=== PATIENT | female | born 1965 | race Caucasian/White ===

== ENCOUNTER 2017-01-01 16:40 | Emergency (ER) | payer OTHER ==
[2017-01-01 16:51] VITALS: BP 118/69
--- NOTE | 2017-01-01 17:05 | ER Document Report ---
ED Medical Screen (RME) - General Chief Complaint: Fall Injury Stated Complaint: FALL/RIGHT KNEE PAIN TRAVEL OUTSIDE OF THE [place] IN LAST 30 DAYS: No - HPI Patient complains to provider of: fall Notes: 01/01/17 17:04 Fall from scaffolding right knee pain - Related Data Allergies/Adverse Reactions: No Known Allergies Allergy (Verified 01/01/17 16:51) Past Medical History - Past Medical History Cardiac Medical History: Reports: Hx Heart Attack - cardiac cath negative 07/07 Neurological Medical History: Denies: Hx Seizures Renal/ Medical History: Denies: Hx Peritoneal Dialysis GI Medical History: Reports: Hx Gastroesophageal Reflux Disease Psychiatric Medical History: Reports: Hx Attention Deficit Hyperactivity Disorder, Hx Depression Past Surgical History: Reports: Hx Abdominal Surgery - GASTRIC BYPASS, BOWEL OBSTRUCTION, Hx Breast Surgery - REDUCTION, Hx Cholecystectomy, Hx Gynecologic Surgery - CERVICAL ABLATION, Hx Hysterectomy, Hx Kidney (Renal Surgery), Hx Tonsillectomy - Immunizations Hx Diphtheria, Pertussis, Tetanus Vaccination: No Review of Systems - Review of Systems Constitutional: Other - Right knee pain Physical Exam - Vital signs Vitals: Temp Pulse Resp BP Pulse Ox 98.6 F 72 18 118/69 99 01/01/17 16:50 01/01/17 16:50 01/01/17 16:50 01/01/17 16:50 01/01/17 16:50 - Notes Notes: Right knee pain Course - Vital Signs Vital signs: Temp Pulse Resp BP Pulse Ox 98.6 F 72 18 118/69 99 01/01/17 16:50 01/01/17 16:50 01/01/17 16:50 01/01/17 16:50 01/01/17 16:50
--- NOTE | 2017-01-01 18:17 | ER Document Report ---
ED Fall - General Chief Complaint: Fall Injury Stated Complaint: FALL/RIGHT KNEE PAIN Notes: 51 yo female c/o right knee and lower leg pain. pt fell approx 12 feet from scaffolding. + able to bear weight, but with pain. TRAVEL OUTSIDE OF THE [place] IN LAST 30 DAYS: No - HPI Occurred: Just prior to arrival Context: Fell from height Associated symptoms: None Location of injury/pain: Knee - right Adult Front & Back: 1 - pain Quality of pain: Achy Severity: Severe - Related data Allergies/Adverse Reactions: No Known Allergies Allergy (Verified 01/01/17 16:51) Past Medical History - General Information source: Patient - Social History Smoking Status: Current Every Day Smoker Chew tobacco use (# tins/day): Yes Frequency of alcohol use: None Drug Abuse: None Lives with: Family Family History: Reviewed & Not Pertinent Patient has suicidal ideation: No Patient has homicidal ideation: No - Past Medical History Cardiac Medical History: Reports: Hx Heart Attack - cardiac cath negative 07/07 Neurological Medical History: Denies: Hx Seizures Renal/ Medical History: Denies: Hx Peritoneal Dialysis GI Medical History: Reports: Hx Gastroesophageal Reflux Disease Psychiatric Medical History: Reports: Hx Attention Deficit Hyperactivity Disorder, Hx Depression Past Surgical History: Reports: Hx Abdominal Surgery - GASTRIC BYPASS, BOWEL OBSTRUCTION, Hx Breast Surgery - REDUCTION, Hx Cholecystectomy, Hx Gynecologic Surgery - CERVICAL ABLATION, Hx Hysterectomy, Hx Kidney (Renal Surgery), Hx Tonsillectomy - Immunizations Hx Diphtheria, Pertussis, Tetanus Vaccination: No Hx Pneumococcal Vaccination: 09/25/05 Review of Systems - Review of Systems Constitutional: No symptoms reported EENT: No symptoms reported Cardiovascular: No symptoms reported Respiratory: No symptoms reported Gastrointestinal: No symptoms reported Genitourinary: No symptoms reported Female Genitourinary: No symptoms reported Musculoskeletal: See HPI Skin: No symptoms reported Hematologic/Lymphatic: No symptoms reported Neurological/Psychological: No symptoms reported Physical Exam - Vital signs Vitals: Temp Pulse Resp BP Pulse Ox 98.6 F 72 18 118/69 99 01/01/17 16:45 01/01/17 16:45 01/01/17 16:45 01/01/17 16:45 01/01/17 16:45 Interpretation: Normal - General General appearance: Appears well, Alert - HEENT Head: Normocephalic, Atraumatic Eyes: Normal Pupils: PERRL - Respiratory Respiratory status: No respiratory distress Chest status: Nontender Breath sounds: Normal Chest palpation: Normal - Cardiovascular Rhythm: Regular Heart sounds: Normal auscultation Murmur: No - Abdominal Inspection: Normal Distension: No distension Bowel sounds: Normal Tenderness: Nontender Organomegaly: No organomegaly - Back Back: Normal, Nontender - Extremities General upper extremity: Normal inspection, Nontender, Normal color, Normal ROM , Normal temperature Knee: Tender - right knee without deformity. no effusion. neg drawer. + lateral compartment tenderness. no tib/fib tenderness. distal SMC intact, Pain with ROM - mild pain with flexion/extension. No: Deformity, Dislocation, Ecchymosis, Joint effusion Calf: Nontender - Neurological Neuro grossly intact: Yes Cognition: Normal Orientation: AAOx4 [place] Coma Scale Eye Opening: Spontaneous [place] Coma Scale Verbal: Oriented [place] Coma Scale Motor: Obeys Commands Lore Coma Scale Total: 15 Speech: Normal Motor strength normal: LUE, RUE, LLE, RLE Sensory: Normal - Psychological Associated symptoms: Normal affect, Normal mood - Skin Skin Temperature: Warm Skin Moisture: Dry Skin Color: Normal Course - Re-evaluation Re-evalutation: 01/01/17 18:17 xrays are negative. results reviewed with patient. pt stable for discharge - Vital Signs Vital signs: Temp Pulse Resp BP Pulse Ox 98.6 F 72 18 118/69 99 01/01/17 16:50 01/01/17 16:50 01/01/17 16:50 01/01/17 16:50 01/01/17 16:50 Procedures - Immobilization right knee Pre-Proc Neuro Vasc Exam: Normal Immobilizer type: Goerge wrap Performed by: PCT Post-Proc Neuro Vasc Exam: Normal Discharge - Discharge Clinical Impression: Right knee sprain Qualifiers: Encounter type: initial encounter Involved ligament of knee: unspecified ligament Qualified Code(s): S83.91XA - Sprain of unspecified site of right knee , initial encounter Condition: Stable Disposition: HOME, SELF-CARE Instructions: Use of Crutches ([facility]), Ice & Elevation ([facility]), Sprained Knee ([facility]) , Ibuprofen (General) ([facility]), Ultram ([facility]) Additional Instructions: Your xrays are negative for fracture ice/elevate affected leg use george and crutches for comfort take meds as prescribed follow up with primary care if pain persists more than 10 days Prescriptions: Ibuprofen [Motrin 800 mg Tablet] 800 mg PO Q8H PRN #30 tab PRN Reason: Oxycodone HCl/Acetaminophen [Percocet 5-325 mg Tablet] 1 - 2 tab PO ASDIR PRN # 10 tablet PRN Reason:
[2017-01-01] MEDS ORDERED: OXYCODONE-ACETAMINOPHEN 5-325 MG TABLET PO ONE (18:28)
== END 2017-01-01 18:55 | disposition home or self-care (01) ==
LOC: ER 16:40
DX: S83.91XA Sprain of unspecified site of right knee, initial encounter (principal); W17.89XA Other fall from one level to another, initial encounter; F17.200 Nicotine dependence, unspecified, uncomplicated; I25.2 Old myocardial infarction; Z98.84 Bariatric surgery status
CPT/HCPCS: 99283

== ENCOUNTER 2018-10-29 17:36 | Emergency (ER) | payer OTHER ==
[2018-10-29] MEDS ORDERED: MORPHINE SULFATE 10 MG/ML INJ IV ONE ×2 (20:12→22:14)
[2018-10-29 21:11] LABS: ANION GAP 8 (5-19); BLOOD UREA NITROGEN 9 mg/dL (7-20); CALCIUM 9.2 mg/dL (8.4-10.2); CARBON DIOXIDE 29 mmol/L (22-30); CHLORIDE 104 mmol/L (98-107); GLUCOSE 87 mg/dL (75-110); POTASSIUM 4.3 mmol/L (3.6-5.0); SODIUM 140.9 mmol/L (137-145)
--- NOTE | 2018-10-29 21:13 | RADIOLOGY REPORT (SQ) ---
EXAM DESCRIPTION: XR FEMUR 2 VIEWS COMPLETED DATE/TME: 10/29/2018 20:12 CLINICAL HISTORY: 53 years, Female, fall COMPARISON: None. NUMBER OF VIEWS: 4 TECHNIQUE: 4 view left femur LIMITATIONS: None. FINDINGS: Osteopenia. Degenerative changes of the hip and knee. No radiographic evidence for acute fracture or dislocation. IMPRESSION: No acute osseous abnormality. Osteopenia with degenerative change copyright 2010 [employer]- All Rights Reserved
--- NOTE | 2018-10-29 22:07 | RADIOLOGY REPORT (SQ) ---
EXAM DESCRIPTION: CT CHEST, abdomen and pelvis WITH IV CONTRAST COMPLETED DATE/TME: 10/29/2018 20:12 CLINICAL HISTORY: 53 years, Female, fall COMPARISON: 07/10/2013 CT chest, CT abdomen/pelvis dated 09/14/2013. TECHNIQUE: 762 Images stored on PACS. All CT scanners at this facility use dose modulation, iterative reconstruction, and/or weight based dosing when appropriate to reduce radiation dose to as low as reasonably achievable (ALARA). [facility]: Dose Right [facility]: CareDose [facility]: Dose Right [facility]: Teradose 4D [facility]: [employer] LIMITATIONS: None. FINDINGS: CT chest: The visualized thyroid gland enhances normally. The mediastinal vasculature enhances normally. No mediastinal or hilar adenopathy. What are likely calcified lymph nodes in the subcutaneous fat bilaterally. Osseous structures of the thorax are grossly intact. No pneumothorax. The visualized airways are patent. The lungs are clear. CT abdomen/pelvis: Minor degenerative changes of the lumbar spine. Osseous structures are otherwise grossly intact. The liver, spleen, adrenal glands, pancreas are unremarkable. Subcentimeter renal cysts bilaterally. The kidneys are otherwise unremarkable. Status post cholecystectomy. Postsurgical changes in the epigastric region consistent with prior gastric bypass. No gross evidence for bowel obstruction. No free air or free fluid. Abundant stool in the colon. The appendix is not well seen. No pericecal inflammation. IMPRESSION: Negative for acute intrathoracic process. Negative for acute intra-abdominal/pelvic process. TECHNICAL DOCUMENTATION: Quality ID # [id number]: Final reports with documentation of one or more dose reduction techniques (e.g., Automated exposure control, adjustment of the mA and/or kV according to patient size, use of iterative reconstruction technique) copyright 2011 [employer]- All Rights Reserved
--- NOTE | 2018-10-29 22:11 | ER Document Report ---
ED General - General Chief Complaint: Fall Injury Stated Complaint: FALL/SIDE RIB PAIN Time Seen by Provider: 10/29/18 19:44 Primary Care Provider: JOSEMANUEL ALVARADO DO [Primary Care Provider] - Follow up as needed Notes: Patient is a 53-year-old female who presents to the emergency department with a chief complaint of left rib pain. She fell 5 days ago and landed on some bricks at her house. She states that she has some bruises to her left hip and her left side. She states that the pain is excruciating and that any position is uncomfortable, whether it is lying, sitting, or standing. She describes her pain as a sore pain. She has been taking Motrin and Tylenol for the pain, with no relief. TRAVEL OUTSIDE OF THE [place] IN LAST 30 DAYS: No - Related Data Allergies/Adverse Reactions: No Known Allergies Allergy (Verified 01/01/17 16:51) Past Medical History - Social History Smoking Status: Current Every Day Smoker Frequency of alcohol use: Occasional Drug Abuse: None Family History: Reviewed & Not Pertinent Patient has suicidal ideation: No Patient has homicidal ideation: No - Past Medical History Cardiac Medical History: Reports: Hx Heart Attack - cardiac cath negative 07/07 Neurological Medical History: Denies: Hx Seizures Renal/ Medical History: Reports: Hx Peritoneal Dialysis GI Medical History: Reports: Hx Gastroesophageal Reflux Disease Psychiatric Medical History: Reports: Hx Attention Deficit Hyperactivity Disorder, Hx Depression Past Surgical History: Reports: Hx Abdominal Surgery - GASTRIC BYPASS, BOWEL OBSTRUCTION, Hx Breast Surgery - REDUCTION, Hx Cholecystectomy, Hx Gynecologic Surgery - CERVICAL ABLATION, Hx Hysterectomy, Hx Kidney (Renal Surgery), Hx Tonsillectomy - Immunizations Hx Diphtheria, Pertussis, Tetanus Vaccination: No Hx Pneumococcal Vaccination: 09/25/05 Review of Systems - Review of Systems Notes: REVIEW OF SYSTEMS: CONSTITUTIONAL : Denies recent illness. Denies recent unintentional weight loss. Denies fever, chills, or sweats. EENT: Denies eye, ear, throat, or mouth pain, discharge, or symptoms. Denies nasal or sinus congestion. CARDIOVASCULAR: Denies chest pain. RESPIRATORY: Denies shortness of breath, cough, congestion, difficulty breathing, or wheezing. GASTROINTESTINAL: Denies nausea, vomiting, and diarrhea. Denies abdominal pain. Denies constipation. GENITOURINARY: Denies difficulty urinating, burning, blood in urine, urgency or frequency. MUSCULOSKELETAL: See HPI. SKIN: See HPI. HEMATOLOGIC : Denies easy bruising or bleeding. LYMPHATIC: Denies swollen, painful, enlarged glands. NEUROLOGICAL: Denies no numbness or tingling denies weakness. Denies headache. Denies altered mental status. Denies alteration in speech. PSYCHIATRIC: Denies stress, anxiety, alteration in sleep patterns, or depression. All other systems reviewed and negative. Physical Exam - Vital signs Vitals: Temp Pulse Resp BP Pulse Ox 98.7 F 64 20 140/83 H 97 10/29/18 17:55 10/29/18 17:55 10/29/18 17:55 10/29/18 17:55 10/29/18 17:55 - Notes Notes: PHYSICAL EXAMINATION: GENERAL: Appears well, healthy, well-nourished, no acute distress. HEAD: Normocephalic, atraumatic. EYES: PERRL, conjunctiva normal, all extraocular movements intact, sclera n onicteric ENT: Moist mucous membranes. NECK: Supple, no noticeable swelling, redness, rash. Normal range of motion. LUNGS: Equal breath sounds bilaterally and clear to auscultation. No wheezes rales or rhonchi. CARDIOVASCULAR: S1-S2, regular rate, regular rhythm. Radial pulses 2+, normal. ABDOMEN: Normoactive bowel sounds. Soft, mildly, no guarding, no rebound tenderness, and no masses palpated. Bruising noted to left lateral trunk area between ribs and abdomen. EXTREMITIES: Normal strength and range of motion, no pitting or edema. No cyanosis. Bruising noted to left lateral thigh. NEUROLOGICAL: Moves all extremities upon command. Strength 5/5 in all extremities. PSYCH: Normal mood, normal affect. SKIN: Warm, dry. No rash, lesions, ulcerations noted. Normal skin turgor. Course - Re-evaluation Re-evalutation: 10/29/18 21:15 Based off of patient's physical exam and bruising to her left trunk and her left hip, she will be sent for a CT of the chest and abdomen to rule out any intra- abdominal and intrathoracic bleeding. 10/29/18 23:[address] of the chest and abdomen are negative. Her hip x-rays are negative, but show degenerative changes. She will be sent home with some Rome for pain r zoë and she will follow-up with her primary care provider in regards to this visit. Verbal discharge instructions were given to the patient. They verbalized understanding. They are stable for discharge. - Vital Signs Vital signs: Temp Pulse Resp BP Pulse Ox 97.5 F 65 16 112/68 96 10/29/18 22:22 10/29/18 22:22 10/29/18 22:22 10/29/18 22:22 10/29/18 22:22 - Laboratory Result Diagrams: 10/29/18 20:45 Discharge - Discharge Clinical Impression: Rib pain on left side, Left leg pain Fall Qualifiers: Encounter type: initial encounter Qualified Code(s): W19.XXXA - Unspecified fall, initial encounter Condition: Stable Disposition: HOME, SELF-CARE Instructions: Oral Narcotic Medication ([facility]) Additional Instructions: You were seen today in the emergency department after a fall. Your x-rays and CAT scans are normal. Please take Tylenol 650 mg and ibuprofen 600 mg every 6 hours as needed for your pain. You may also take the Rome (pain medication) you were provided here in the emergency department every 6 hours as needed for your pain. Please take [id number] Colace, stool softener to keep you from getting constipated. Follow-up with your primary care provider in regards to this visit. If you feel your pain is getting worse, you may return to the emergency department. Referrals: JOSEMANUEL ALVARADO DO [Primary Care Provider] - Follow up as needed
[2018-10-29] MEDS ORDERED: HYDROCODONE/ACETAMINOPHEN 5-325 MG (6 TAB/ER DISP) PO PRN (23:33)
[2018-10-29 23:59] VITALS: BP 101/58
--- NOTE | 2018-10-30 07:59 | RADIOLOGY REPORT (SQ) ---
EXAM DESCRIPTION: CT ABDOMEN IV CONTRAST ONLY COMPLETE DATE/TIME: 10/29/2018 9:51 pm REASON FOR STUDY: fall FINDINGS: Please see separate report of the CT chest for performance of procedure and radiologic sup ervision and interpretation. IMPRESSION: Please see separate report of the CT chest for performance of procedure and radiologic s upervision and interpretation. Reading location - IP/workstation name: [email or web address]
== END 2018-10-29 23:59 | disposition home or self-care (01) ==
LOC: ER 17:36
DX: R07.81 Pleurodynia (principal); M79.605 Pain in left leg; W19.XXXA Unspecified fall, initial encounter; F17.200 Nicotine dependence, unspecified, uncomplicated
CPT/HCPCS: 96376; 99284; 96374; 36415; 80048; 73552; 71260; 74160; J2270

== ENCOUNTER → 2018-11-16 | Outpatient (CLI) | payer OTHER ==
--- NOTE | 2018-11-16 10:09 | WOMENS IMAGING REPORT ---
EXAM DESCRIPTION: BILAT SCREENING MAMMO W/CAD COMPLETED DATE/TIME: 11/16/2018 9:42 am REASON FOR STUDY: Z12.31 ENCOUNTER FOR SCREENING MAMMOGRAM FOR MALIGNANT NEOPLASM OF BREAST Z12.31 ENCNTR SCREEN MAMMOGRAM FOR MALIGNANT NEOPLASM OF ASTER COMPARISON: Multiple since 2008 TECHNIQUE: Standard craniocaudal and mediolateral oblique views of each breast recorded using digita l acquisition. LIMITATIONS: None. FINDINGS: Findings present which are benign by mammographic criteria. No suspicious masses, calcifi cations or architectural distortion. Pertinent benign findings: Old postsurgical changes from breast reduction. Bilateral calcified oil c ysts Read with the assistance of CAD. .[facility] - R2 Cenova Version 1.3 .[facility] - R2 Cenova Version 2.1 .[facility] - R2 Cenova Version 2.4 .[facility] - R2 Cenova Version 2.4 .[facility] - R2 Egg Packer Version 9.2 Benign mammographic findings may include one or more of the following: Smooth masses, popcorn/rim/co arse calcifications, asymmetries, post-procedure changes, and lesions with long-standing stability. IMPRESSION: BENIGN MAMMOGRAPHIC FINDINGS. BIRADS 2 BREAST DENSITY: a. The breasts are almost entirely fatty. BIRAD: 2 BENIGN FINDING(S) RECOMMENDATION: ROUTINE SCREENING COMMENT: The patient has been notified of the results by letter per SA requirements. Additional no tification policies are in place for contacting patient with suspicious or incomplete findings. Quality ID #[id number]: The [employer] recommends an annual screening mammogram for women aged 40 years or over. This facility utilizes a reminder system to ensure that all patients receive reminder letters, and/or direct phone calls for appointments. This includes reminders for routine scr eening mammograms, diagnostic mammograms, or other Breast Imaging Interventions when appropriate. Th is patient will be placed in the appropriate reminder system. The [employer] (A[employer]) has developed recommendations for screening MRI of the breast s in certain patient populations, to be used in conjunction with mammography. Breast MRI surveillanc e may be appropriate for women with more than 20% lifetime risk of developing breast cancer as deter mined by genetic testing, significant family history of the disease, or history of mantle radiation f or Hodgkins Disease. [employer] Practice Guidelines 2008. TECHNICAL DOCUMENTATION: FINDING NUMBER: (1) ASSESSMENT: (1) JOB ID: [id number] [employer]- All Rights Reserved Reading location - IP/workstation name: [email or web address]
== END ==
LOC: WI 08:31
PROVIDERS: ATTEND Family Medicine
DX: Z12.31 Encounter for screening mammogram for malignant neoplasm of breast (principal)
CPT/HCPCS: 77067

== ENCOUNTER 2019-06-01 14:54 | Emergency (ER) | payer OTHER ==
--- NOTE | 2019-06-01 17:13 | ER Document Report ---
ED Psych Disorder / Suicide - General Chief Complaint: Overdose Stated Complaint: ALTERED MENTAL STATUS Primary Care Provider: JOSEMANUEL ALVARADO DO [Primary Care Provider] - Follow up as needed Information source: Patient, Relative TRAVEL OUTSIDE OF THE [place] IN LAST 30 DAYS: No - HPI Patient complains to provider of: Aggression, Agitated, Hallucinating, Suicidal ideation Onset: Yesterday Onset was: Gradual Quality of pain: denies: No pain, Achy, Burning, Cramping, Dull, Fullness, Pressure, Sharp, Stabbing, Throbbing, Other Suicide Risk Factors: Bipolar Situational problems related to: Spouse Suicide Attempt Method: denies: Drowning, Hanging, Motor Vehicle, Overdose, Shooting, Stabbing/Cutting, Train, Other Overdose of: No: Acetominophen, Alcohol, Anticholinergic, Anti-depressants, Benzodiazepine, Salicylate, Tricyclic Antidepressant, Other Associated symptoms: Aggressive, Agitated, Auditory hallucinations. No: Normal affect, Normal mood, Angry, Anxious, Circumferential speech, Combative, Confused, Decreased appetite, Depressed, Excessive sleeping, Flat affect, Flight of ideas, Increased appetite, Irritable, Labile, Manic, Paranoid, Psychomotor agitation, Psychomotor depression, Orthodoxy preoccupation, Restlessness, Tactile hallucinations, Tangential speech, Tearful, Unable to sleep, Uncooperative, Visual hallucinations, Other Similar symptoms previously: Yes - with bipolar - Related Data Allergies/Adverse Reactions: No Known Allergies Allergy (Verified 01/01/17 16:51) Past Medical History - Social History Smoking Status: Current Some Day Smoker Family History: Reviewed & Not Pertinent - Past Medical History Cardiac Medical History: Reports: Hx Heart Attack - cardiac cath negative 07/07 Neurological Medical History: Denies: Hx Seizures Renal/ Medical History: Reports: Hx Peritoneal Dialysis GI Medical History: Reports: Hx Gastroesophageal Reflux Disease Psychiatric Medical History: Reports: Hx Attention Deficit Hyperactivity Disorder, Hx Depression Past Surgical History: Reports: Hx Abdominal Surgery - GASTRIC BYPASS, BOWEL OBSTRUCTION, Hx Breast Surgery - REDUCTION, Hx Cholecystectomy, Hx Gynecologic Surgery - CERVICAL ABLATION, Hx Hysterectomy, Hx Kidney (Renal Surgery), Hx Tonsillectomy - Immunizations Hx Diphtheria, Pertussis, Tetanus Vaccination: No Hx Pneumococcal Vaccination: 09/25/05 Review of Systems - Review of Systems Constitutional: denies: No symptoms reported, See HPI, Chills, Diaphoresis, Fever, Malaise, Weakness, Other, Weight gain, Weight loss, Recent illness EENT: denies: No symptoms reported, See HPI, Eye pain, Eye discharge, Blurred vision, Tearing, Double vision, Ear pain, Ear discharge, Nose pain, Nose congestion, Nose discharge, Sinus pressure, Sinus discharge, Throat pain, Difficulty swallowing, Throat swelling, Mouth pain, Mouth swelling, Dental problem, Vertigo, Other Cardiovascular: denies: No symptoms reported, See HPI, Chest pain, Palpitations, Heart racing, Orthopnea, Dyspnea, Syncope, Dizziness, Lightheaded, Edema, Other, Paroxysmal Nocturnal Dysp Respiratory: denies: No symptoms reported, See HPI, Cough, Hurts to breathe, Hemoptysis, Short of breath, Sputum, Stridor, Wheezing, Other Gastrointestinal: denies: No symptoms reported, See HPI, Abdomen distended, Abdominal pain, Diarrhea, Nausea, Vomiting, Constipation, Blood streaked bowels, Poor appetite, Poor fluid intake, Blood in vomit, Black stools, Rectal bleeding, Last bowel movement, Fecal incontinence, Other Genitourinary: denies: No symptoms reported, See HPI, Burning, Dysuria, Discharge, Frequency, Flank pain, Hematuria, Incontinence, Pain, Urgency, Retention, Other Female Genitourinary: denies: No symptoms reported, See HPI, Last menstrual period, , Post menopausal, Heavy/abnormal periods, Irregular period, V aginal bleeding, Vaginal discharge, Vaginal odor, Painful intercourse, Other Neurological/Psychological: Hallucinations -: Yes All other systems reviewed and negative Physical Exam - Vital signs Vitals: Temp Pulse Resp BP Pulse Ox 98.3 F 97 18 139/80 H 95 06/01/19 15:06 06/01/19 15:06 06/01/19 15:06 06/01/19 15:06 06/01/19 15:06 Notes: PHYSICAL EXAMINATION: GENERAL: Agitated patient HEAD: Atraumatic, normocephalic. EYES: Pupils equal round and reactive to light, extraocular movements intact, sclera anicteric, conjunctiva are normal. ENT: nares patent, oropharynx clear without exudates. Moist mucous membranes. NECK: Normal range of motion, supple without lymphadenopathy LUNGS: Breath sounds clear to auscultation bilaterally and equal. No wheezes rales or rhonchi. HEART: Regular rate and rhythm without murmurs ABDOMEN: Soft, nontender, normoactive bowel sounds. No guarding, no rebound. No masses appreciated. EXTREMITIES: Normal range of motion, no pitting or edema. No cyanosis. NEUROLOGICAL: No focal neurological deficits. Moves all extremities spontaneously and on command. PSych: Agitated affect with active hallucinations and claiming that she has racing thoughts similar to when she has had manic episodes in the past SKIN: Warm, Dry, normal turgor, no rashes or lesions noted. Course - Vital Signs Vital signs: Temp Pulse Resp BP Pulse Ox 98.3 F 97 18 121/68 96 06/01/19 15:06 06/01/19 15:06 06/01/19 15:06 06/01/19 18:01 06/01/19 18:55 - Laboratory Result Diagrams: 06/01/19 16:41 06/01/19 16:41 Laboratory results interpreted by me: 06/01/19 06/01/19 16:41 16:41 RDW 19.4 H Total Protein 5.9 L Discharge - Discharge Clinical Impression: Psychosis Condition: Fair Disposition: PSYCH HOSP/UNIT Referrals: JOSEMANUEL ALVARADO DO [Primary Care Provider] - Follow up as needed
[2019-06-01 17:21] LABS: ABSOLUTE BASOPHILS # (AUTO) 0.1 10^3/uL (0.0-0.2); ABSOLUTE EOSINOPHILS # (AUTO) 0.2 10^3/uL (0.0-0.6); ABSOLUTE LYMPHOCYTES (AUTO) 1.3 10^3/uL (0.5-4.7); ABSOLUTE MONOCYTES (AUTO) 0.5 10^3/uL (0.1-1.4); ABSOLUTE NEUT (AUTO) 4.4 10^3/uL (1.7-8.2); BASOPHILS % (AUTO) 1.1 % (0-2); EOSINOPHILS % (AUTO) 2.5 % (0-6); HEMATOCRIT 36.5 % (36.0-47.0); HEMOGLOBIN 12.1 g/dL (12.0-15.5); MEAN CORPUSCULAR HEMOGLOBIN 28.9 pg (27.0-33.4); MEAN CORPUSCULAR HGB CONC 33.1 g/dL (32.0-36.0); MEAN CORPUSCULAR VOLUME 87 fl (80-97); MONOCYTES % (AUTO) 7.8 % (3-13); PLATELET COUNT 326 10^3/uL (150-450); RED BLOOD COUNT 4.18 10^6/uL (3.72-5.28); RED CELL DISTRIBUTION WIDTH 19.4 % (11.5-14.0); SEGMENTED NEUTROPHILS % (AUTO) 68.6 % (42-78); TOTAL CELLS COUNTED % (AUTO) 100 %; WHITE BLOOD COUNT 6.4 10^3/uL (4.0-10.5)
[2019-06-01 17:26] LABS: ALBUMIN 3.7 g/dL (3.5-5.0); ALKALINE PHOSPHATASE 83 U/L (38-126); ASPARTATE AMINO TRANSFERASE 36 U/L (14-36); BILIRUBIN,DIRECT 0.2 mg/dL (0.0-0.4); BILIRUBIN,TOTAL 0.2 mg/dL (0.2-1.3); BLOOD UREA NITROGEN 10 mg/dL (7-20); CALCIUM 8.9 mg/dL (8.4-10.2); CARBON DIOXIDE 29 mmol/L (22-30); CHLORIDE 105 mmol/L (98-107); GLUCOSE 101 mg/dL (75-110); TOTAL PROTEIN 5.9 g/dL (6.3-8.2)
[2019-06-01 17:27] LABS: ALCOHOL < 10 mg/dL (NONE DETECTED)
[2019-06-01 17:29] LABS: ANION GAP 5 (5-19)
[2019-06-01 18:19] LABS: APPEARANCE,URINE CLEAR; BILIRUBIN,URINE NEGATIVE (NEGATIVE); COLOR,URINE YELLOW; GLUCOSE, URINE NEGATIVE (NEGATIVE); KETONES,URINE NEGATIVE (NEGATIVE); LEUKOCYTE ESTERASE,URINE NEGATIVE (NEGATIVE); NITRITE,URINE NEGATIVE (NEGATIVE); PROTEIN,URINE NEGATIVE (NEGATIVE); URINE SPECIFIC GRAVITY 1.012; UROBILINOGEN,URINE NEGATIVE mg/dL (<2.0)
[2019-06-01 18:33] LABS: URINE AMPHETAMINES SCREEN UNCONFIRMED POSITIVE; URINE BARBITURATES SCREEN NEGATIVE; URINE BENZODIAZEPINES SCREEN NEGATIVE; URINE COCAINE SCREEN NEGATIVE; URINE MARIJUANA (THC) SCREEN NEGATIVE; URINE METHADONE SCREEN NEGATIVE; URINE PHENCYCLIDINE SCREEN NEGATIVE
[2019-06-02] MEDS ORDERED: DULOXETINE HCL 30 MG CAPSULE.DR PO ONE ×2 (12:50→15:30)
[2019-06-02] MEDS ORDERED: PROPRANOLOL HCL 10 MG TABLET PO SCH (13:00)
--- NOTE | 2019-06-02 15:19 | PSYCHOLOGICAL NOTE ---
Psych Note - Psych Note Date seen by psych provider: 06/02/19 Time seen by psych provider: 07:55 - Chart review at 0755. Evaluation from 0853- 0858. 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 Patient presented lethargic and tired. Diagnosis: AMS OD Bipolar by Hx Medication recommendations made by the psychiatric medication provider, Dr. Mati MD., includes: Discontinue Klonopin (per patient takes at least 1MG BID) Discontinue Abilify 7.5MG QD Decrease Wellbutrin to 150MG QD Decrease Cymbalta to 60MG QD Add Propanolol 10MG BID for anxiety Impression/Plan: Recommendation to maintain 24 Hour IVC Petition. Patient had an OD with inability to recall events. She has Hx of MH, is prescribed multiple medications via [facility] and was still a bit lethargic. Consulted with Dr. Casper regarding the management and care of patient. ED Physician in agreement with recommendations.
[2019-06-02] MEDS: PROPRANOLOL HCL 10 MG TABLET PO SCH ×2 (16:22→22:16)
[2019-06-02] MEDS: BUPROPION HCL 75 MG TABLET PO SCH (16:23)
[2019-06-02] MEDS: ASPIRIN 325 MG TABLET PO PRN (16:23)
--- NOTE | 2019-06-02 20:05 | ER Document Report ---
Doctor's Note Notes: 06/02/19 20:04 Patient is awake and alert. States she regrets what she did but cannot give a full explanation as to why she did it. Does follow-up with behavioral health as an outpatient. Behavioral health team has recommended stopping Klonopin and Abilify and starting Wellbutrin, Cymbalta and propranolol. All of these have been ordered. They would like to observe patient overnight to see if she has any response to the medication. Patient does complain of some back and neck pain which she states is fairly constant for her. States she takes BC powders for this. Patient will be given aspirin for this. Patient counseled not to take more than 4 g of aspirin in a day. GENERAL: Alert, interacts well. No acute distress. HEAD: Normocephalic, atraumatic EYES: Pupils equal, round and reactive to light, extraocular movements intact. ENT: Oral mucosa moist, tongue midline. NECK: Full range of motion, supple, trachea midline. LUNGS: no respiratory distress. Backno midline bony tenderness to palpation, no step-offs or deformities. EXTREMITIES: Moves all 4 extremities spontaneously, no edema. No cyanosis. NEUROLOGICAL: Alert and oriented x3, normal speech. PSYCH: Normal mood, normal affect. SKIN: Warm, Dry, normal turgor, no rashes or lesions noted.
[2019-06-03] MEDS: PROPRANOLOL HCL 10 MG TABLET PO SCH (09:41)
[2019-06-03] MEDS: BUPROPION HCL 75 MG TABLET PO SCH (09:54)
[2019-06-03] MEDS: ASPIRIN 325 MG TABLET PO PRN (09:54)
--- NOTE | 2019-06-03 10:18 | ER Document Report ---
Doctor's Note Notes: 06/03/19 10:16 I hAVE EVLAUATED this pt. this am and she has no c/o at this time. She feels all of her needs are being met and her physical exam is normal. She is awaiting disposition per mental health.
[2019-06-03] MEDS ORDERED: PROPRANOLOL HCL 10 MG TABLET PO SCH (13:30)
[2019-06-03] MEDS ORDERED: ACETAMINOPHEN 325 MG TABLET PO ONE (13:50)
[2019-06-03 16:17] VITALS: BP 101/57
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
== END 2019-06-03 16:23 ==
LOC: ER 14:54
DX: F29 Unspecified psychosis not due to a substance or known physiological condition (principal); R45.851 Suicidal ideations; M54.9 Dorsalgia, unspecified; M54.2 Cervicalgia; F17.200 Nicotine dependence, unspecified, uncomplicated
CPT/HCPCS: 99285; 36415; 80307 ×2; 84443; 85025; 80053; 81001; J3490

== ENCOUNTER 2019-09-24 23:22 | Emergency (ER) | payer OTHER ==
[2019-09-25 00:13] VITALS: BP 110/71
[2019-09-25] MEDS ORDERED: ACETAMINOPHEN 325 MG TABLET PO ONE (00:35)
== END 2019-09-25 03:40 | disposition left against medical advice (07) ==
LOC: ER 23:22
DX: Z53.21 Procedure and treatment not carried out due to patient leaving prior to being seen by health care provider (principal)

== ENCOUNTER 2020-02-10 17:40 | Emergency (ER) | payer OTHER ==
[2020-02-10] MEDS ORDERED: CYCLOBENZAPRINE HCL 10 MG TABLET PO ONE (18:40)
[2020-02-10] MEDS ORDERED: KETOROLAC TROMETHAMINE 60 MG/2 ML SDV IM ONE (18:40)
[2020-02-10] MEDS ORDERED: METHYLPREDNISOLONE INJ 125 MG/2 ML SDV IM ONE (18:40)
--- NOTE | 2020-02-10 18:41 | ER Document Report ---
HPI - HPI Patient complains to provider of: Back pain Time Seen by Provider: 02/10/20 18:34 Onset: This morning Onset/Duration: Sudden Severity: Severe Pain Level: 5 Context: 54-year-old female past medical history significant for kidney stones presents to the emergency room complaining of low back pain that started earlier today when she bent over to put on her shoes. States she has been using ice, heat, ibuprofen without relief. Last dose at noon today. She denies any previous history of trauma to her back. Denies any loss control of bowels or bladder, no saddle anesthesia, no red flags. Associated Symptoms: None Exacerbated by: Sitting, Standing, Movement, Walking Relieved by: Denies Similar symptoms previously: No Recently seen / treated by doctor: No - ROS ROS below otherwise negative: Yes - CONSTITUTIONAL Constitutional: DENIES: Fever, Chills - NEURO Neurology: DENIES: Weakness - CARDIOVASCULAR Cardiovascular: DENIES: Chest pain - GASTROINTESTINAL Gastrointestinal: DENIES: Abdominal Pain, Nausea, Patient vomiting - URINARY Urinary: DENIES: Dysuria, Urgency, Frequency - REPRODUCTIVE Reproductive: DENIES: : - MUSCULOSKELETAL Musculoskeletal: REPORTS: Back Pain - DERM Skin Color: Normal Skin Problems: None Past Medical History - General Information source: Patient - Social History Smoking Status: Current Every Day Smoker Frequency of alcohol use: Occasional Drug Abuse: None Family History: Reviewed & Not Pertinent - Past Medical History Cardiac Medical History: Reports: Hx Heart Attack - cardiac cath negative 07/07 Neurological Medical History: Denies: Hx Seizures Renal/ Medical History: Reports: Hx Peritoneal Dialysis GI Medical History: Reports: Hx Gastroesophageal Reflux Disease Psychiatric Medical History: Reports: Hx Attention Deficit Hyperactivity Disorder, Hx Depression Past Surgical History: Reports: Hx Abdominal Surgery - GASTRIC BYPASS, BOWEL OBSTRUCTION, Hx Breast Surgery - REDUCTION, Hx Cholecystectomy, Hx Gynecologic Surgery - CERVICAL ABLATION, Hx Hysterectomy, Hx Kidney (Renal Surgery), Hx Tonsillectomy - Immunizations Hx Diphtheria, Pertussis, Tetanus Vaccination: No Hx Pneumococcal Vaccination: 09/25/05 Vertical Provider Document - CONSTITUTIONAL Agree With Documented VS: Yes Exam Limitations: No Limitations General Appearance: WD/WN, Moderate Distress - INFECTION CONTROL TRAVEL OUTSIDE OF THE [place] IN LAST 30 DAYS: No - HEENT HEENT: Atraumatic, Normocephalic - NECK Neck: Normal Inspection, Supple - RESPIRATORY Respiratory: Breath Sounds Normal, No Respiratory Distress, Chest Non-Tender. negative: Rales, Rhonchi, Wheezing - CARDIOVASCULAR Cardiovascular: Regular Rate, Regular Rhythm, No Murmur. negative: Tachycardia, Bradycardia - BACK Back: Abnormal Inspection - There is tenderness on palpation from L4-S1. There is tenderness over the right sciatic notch. Positive straight leg raising to the right. Negative straight leg raising to the left.. negative: CVA Tenderness-Right, CVA Tenderness-Left - MUSCULOSKELETAL/EXTREMETIES Musculoskeletal/Extremeties: KAYLA STEWART - NEURO Level of Consciousness: Awake, Alert, Appropriate Motor/Sensory: No Motor Deficit, No Sensory Deficit Deep Tendon Reflexes: 4+ - Patellar reflexes equal and adequate. Ankle reflexes equal and adequate. She is ambulatory with a steady gait. - DERM Integumentary: Warm, Dry, No Rash Course - Re-evaluation Re-evalutation: 02/10/20 19:20 Patient is resting comfortably with decreased pain. Negative straight leg raising bilaterally. Reviewed x-ray and urine results with patient. Counseled to take medications as prescribed. Heat 20 minutes 3 times a day. Outpatient follow-up with primary care physician if not improving in 2 to 3 days. Patient was given strict return to the emergency room guidelines. Return for any new or worsening symptoms. All questions were answered. Patient verbalized understan ding and agrees with plan of care. - Vital Signs Vital signs: Temp Pulse Resp BP Pulse Ox 98.2 F 75 18 126/68 H 96 02/10/20 17:47 02/10/20 17:47 02/10/20 17:47 02/10/20 17:47 02/10/20 17:47 Discharge - Discharge Clinical Impression: Degenerative joint disease of low back Lumbar strain Qualifiers: Encounter type: initial encounter Qualified Code(s): S39.012A - Strain of muscle, fascia and tendon of lower back, initial encounter Spondylisthesis Qualifiers: Spinal region: lumbosacral Qualified Code(s): M43.17 - Spondylolisthesis, lumbosacral region Condition: Stable Disposition: HOME, SELF-CARE Instructions: Muscle Strain ([facility]), Low Back Pain ([facility]) Additional Instructions: Use heat 20 minutes three times a day, take medications as directed, follow up with primary care provider if not improving in 2 to 3 days return for any new or worsening symptoms. Prescriptions: Prednisone [Deltasone 20 mg Tablet] See Protocol PO DAILY 9 Days #18 tablet Cyclobenzaprine HCl [Flexeril 10 mg Tablet] 10 mg PO TIDP PRN #15 tab PRN Reason: Meloxicam [Mobic 7.5 Mg Tablet] 7.5 mg PO DAILY #14 tablet Referrals: JOSEMANUEL ALVARADO DO [Primary Care Provider] - Follow up as needed
[2020-02-10 19:06] LABS: APPEARANCE,URINE CLEAR; BILIRUBIN,URINE NEGATIVE (NEGATIVE); COLOR,URINE YELLOW; GLUCOSE, URINE NEGATIVE (NEGATIVE); KETONES,URINE NEGATIVE (NEGATIVE); LEUKOCYTE ESTERASE,URINE NEGATIVE (NEGATIVE); NITRITE,URINE NEGATIVE (NEGATIVE); PROTEIN,URINE NEGATIVE (NEGATIVE); URINE SPECIFIC GRAVITY 1.009; UROBILINOGEN,URINE NEGATIVE mg/dL (<2.0)
--- NOTE | 2020-02-10 19:14 | RADIOLOGY REPORT (SQ) ---
EXAM DESCRIPTION: L SPINE WHOLE IMAGES COMPLETED DATE/TIME: 02/10/2020 7:04 pm REASON FOR STUDY: back pain COMPARISON: None. NUMBER OF VIEWS: Five views including obliques. TECHNIQUE: AP, lateral, oblique, and sacral radiographic images acquired of the lumbar spine. LIMITATIONS: None. FINDINGS: MINERALIZATION: Normal. SEGMENTATION: Normal. No transitional anatomy. ALIGNMENT: Slight anterolisthesis of L5 on S1. VERTEBRAE: Maintained height. No fracture or worrisome bone lesion. DISCS: Multilevel disc space narrowing. Small anterior osteophytes. POSTERIOR ELEMENTS: Facet arthrosis lower lumbar spine. Pedicles are intact. No pars defect or post erior arch defects. HARDWARE: None in the spine. PARASPINAL SOFT TISSUES: Normal. PELVIS: Intact as visualized. No fractures or worrisome bone lesions. SI joints intact. OTHER: Prior cholecystectomy. Fine wire surgical sutures in the visualized left quadrant of the abd omen and at the gastroesophageal junction. IMPRESSION: 1. Degenerative changes as above. Slight anterolisthesis of L5 on S1. TECHNICAL DOCUMENTATION: JOB ID: [id number] 2010 [employer]- All Rights Reserved Reading location - IP/workstation name: [email or web address]
[2020-02-10 19:30] VITALS: BP 117/75
== END 2020-02-10 19:31 | disposition home or self-care (01) ==
LOC: ER 17:40
DX: S39.012A Strain of muscle, fascia and tendon of lower back, initial encounter (principal); M47.816 Spondylosis without myelopathy or radiculopathy, lumbar region; M43.17 Spondylolisthesis, lumbosacral region; F17.200 Nicotine dependence, unspecified, uncomplicated; X58.XXXA Exposure to other specified factors, initial encounter; I25.2 Old myocardial infarction; Z98.84 Bariatric surgery status
CPT/HCPCS: 99283; 96372; 81001; 72110; J1885; J2930